=== PATIENT | male | born 1990 | race Two or more races ===

== ENCOUNTER 2024-10-03 15:04 | Emergency (ER) | payer MEDICAID, SELFPAY ==
[2024-10-03 15:41] VITALS: BP 142/79; PULSE 57; RESP 19; TEMP 37.1; O2SAT 96; BMI 27.6
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
[2024-10-03] MEDS: ACETAMINOPHEN 500 MG TABLET 1000 MG PO (16:12)
[2024-10-03 17:38] VITALS: BP 143/81; PULSE 62; RESP 16; TEMP 36.8; O2SAT 97
[2024-10-03] MEDS: KETOROLAC INJ 60 MG/2 ML VIAL IM (18:00)
== END 2024-10-03 18:12 | disposition home or self-care (01) ==
PROVIDERS: Emergency Provider Emergency Medicine; PCP Nurse Practitioner Family
DX: S90.01XA Contusion of right ankle, initial encounter (principal); Y04.0XXA Assault by unarmed brawl or fight, initial encounter
CPT/HCPCS: 73590; 73610; 96372; 99283; J1885; A9270

== ENCOUNTER 2024-11-30 19:23 | Emergency (ER) | payer MEDICAID, SELFPAY ==
[2024-11-30 19:24] VITALS: BMI 27.8
[2024-11-30 19:43] VITALS: BP 156/85; PULSE 98; RESP 18; TEMP 36.9; O2SAT 95
--- NOTE | 2024-11-30 19:58 | PD.EDRME ---
Rapid Medical Screening Exam E Arrival date/time: 11/30/24 19:23 34-year-old male past medical history of former drinker reports has been clean for over a year reports went out drinking last night and drink some more this morning and is now complaining of burning epigastric pain with 1 episode of vomiting. Chief Complaint: Abdominal Pain Time Seen by Provider: 11/30/24 19:29 Vital signs: Vital Signs Temperature 98.5 F 11/30/24 19:43 Pulse Rate 98 11/30/24 19:43 Respiratory Rate 18 11/30/24 19:43 Blood Pressure 156/85 H 11/30/24 19:43 Pulse Oximetry (%) 95 11/30/24 19:43 Oxygen Delivery Method Room Air 11/30/24 19:43 Vital signs reviewed by provider: Yes
[2024-11-30] MEDS: FAMOTIDINE 20 MG TABLET 40 MG PO (20:09)
[2024-11-30] MEDS: MG HYD/AL HYD/SIME (Maalox Reg) SUSP 30 ML UDC PO (20:09)
[2024-11-30] MEDS: LIDOCAINE VISCOUS 2% 15 ML UDC PO (20:09)
[2024-11-30 20:31] LABS: Basophils # (Auto) 0.1 Thou/mm3 (0.0-0.2); Basophils % (Auto) 1 % (0-2.5); Eosinophils # (Auto) 0.2 Thou/mm3 (0.0-0.5); Eosinophils % (Auto) 2 % (0-10); Hematocrit 45.1 % (41.0-53.0); Hemoglobin 16.2 g/dL (13.5-16.0); Immature Granulocytes % (Auto) 0 % (0-0); Immature Granulocytes Auto 0.03 Thou/mm3 (0.00-0.00); Lymphocytes % (Auto) 38 % (10-50); Mean Corpuscular HGB Conc 35.9 g/dl (31.0-37.0); Mean Corpuscular Hemoglobin 30.9 pg (25.0-35.0); Mean Corpuscular Volume 86 fL (80-100); Monocytes # (Auto) 0.7 Thou/mm3 (0.0-0.8); Monocytes % (Auto) 8 % (0-12); Neutrophils % (Auto) 51 % (37-80); Nucleated Red Blood Cell % 0 /100 WBC (0); Platelet Count 271 Thou/mm3 (140-440); RDW Standard Deviation 38.9 fL (35.1-43.9); Red Blood Count 5.24 Miln/mm3 (4.50-5.90)
[2024-11-30 20:51] LABS: Collection Type, Urine Clean Catch; Squamous Epithelial Cell,Urine 0 /hpf (0-5)
[2024-11-30 21:05] LABS: Alanine Aminotransferase 27 U/L (10-49); Albumin, Serum 4.9 gm/dL (3.5-5.0); Albumin/Globulin Ratio 1.8 (1.2-2.2); Alkaline Phosphatase 61 U/L (46-116); Anion Gap 8 (7-16); Aspartate Amino Transferase 59 U/L (0-34); BUN/Creatinine Ratio 11 Ratio (12-20); Bilirubin,Total 1.1 mg/dL (0.3-1.2); Blood Urea Nitrogen 12 mg/dL (9-23); Calcium 9.5 mg/dL (8.3-10.6); Calcium (Corrected) 9.5 mg/dL (8.5-10.1); Carbon Dioxide 31.5 mMol/L (20.0-31.0); Chloride 100 mMol/L (98-107); Creatinine (Component) 1.1 mg/dL (0.6-1.3); Estimated Creatinine Clearance 110.1 mL/min (>60); Globulin 2.8 gm/dL (2.3-3.5); Glucose 96 mg/dL (74-106); Lipase 39 U/L (12-53); Osmolality,Calculated 277 (275-295); Potassium 4.6 mMol/L (3.4-5.1); Sodium 139 mMol/L (136-145); Total Protein 7.7 gm/dL (5.7-8.2); eGFR > 60 See Note
[2024-11-30 21:26] LABS: Amphetamine/Methamp Scrn,U Positive (Negative); Barbiturate Screen,Urine Negative (Negative); Benzodiazepines Screen,Urine Negative (Negative); Benzoylecgonine Screen, Ur Positive (Negative); Fentanyl Screen,Urine Negative (Negative); Opiate Screen,Urine Negative (Negative); THC Screen,Urine Negative (Negative)
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
[2024-12-01 03:29] LABS: Bacteria,Urine Rare; Bilirubin,Urine Negative (Negative); Blood,Urine Negative (Negative); Clarity,Urine Clear (Clear/Hazy); Color,Urine Lt-Yellow (Lt Yel-Yel); Culture Indicated,Urine Not Indicated; Glucose, Urine Negative (Negative); Ketones,Urine 1+ (Negative); Leukocyte Esterase,Urine Negative (Negative); Nitrite,Urine Negative (Negative); Protein,Urine Trace (Neg - Trace); RBC,Urine 1 /hpf (0-3); Specific Gravity,Urine 1.023 (1.001-1.035); Urobilinogen,Urine Negative mg/dL (0.0-1.0); WBC,Urine 2 /hpf (0-5)
== END 2024-11-30 22:09 | disposition home or self-care (01) ==
PROVIDERS: Emergency Provider Emergency Medicine; PCP Nurse Practitioner Family
DX: R10.13 Epigastric pain (principal)
CPT/HCPCS: 36415; 80053; 80307; 81001; 83690; 85025; 99283; J3490; A9270